=== PATIENT | female | born 1935 | race Caucasian/White ===

== ENCOUNTER 2019-03-29 20:00 | Emergency (ER) | payer OTHER ==
[2019-03-29 20:11] VITALS: TEMP 98.3; BMI 30.7
--- NOTE | 2019-03-29 20:32 | PDOC ---
History of Present Illness - General Chief Complaint: Chest Pain Stated Complaint: CHEST PAIN Time Seen by Provider: 03/29/19 20:31 History Source: Patient Exam Limitations: No Limitations - History of Present Illness Initial Comments: 84-year-old female with past medical history of hypertension, diabetes not dependent on insulin, thyroid disorder presented to the emergency department for palpitations. Daughter at bedside reported they were shopping at the mall today, she had not eaten since breakfast, she has a little bit nauseous and threw up. At that time they went home and she had coffee and some crackers. She then had an episode of palpitations and a flushed feeling in her face, which prompted her to take her blood pressure. She reported the pressure was 188/44. She reported that she then took her Amlodipine 5 mg a little bit earlier than her nighttime dose. She reported that when her blood pressure did not decrease she was afraid and that is why she came to the Emergency Department. Daughter and patient reported patient is feeling much better this time, no palpitations, No shortness of breath, never had chest pain, denied headache, denied current nausea, denied back pain. Pt has also been out of her anxiety medication the last three days. ROS General: denied fever, chills, generalized weakness. HEENT: denied sore throat, rhinorrhea, ear pain. Cardiovascular: admitted to palpitations. denied chest pain, syncope, diaphoresis. Respiratory: denied shortness of breath, cough, sputum production, hemoptysis. Gastrointestinal: admitted to nausea. denied abdominal pain, vomiting, diarrhea , constipation, blood in stool. Genitourinary: denied dysuria, increased urinary frequency, hematuria, urinary incontinence, flank pain. Back: denied back pain. Musculoskeletal: denied joint pain, muscle pain, joint swelling. Neurological: denied headache, dizziness, numbness, tingling, weakness. Integumentary: denied rash, laceration, abrasion. Hematologic/Lymphatic: denied bruising or bleeding. PE Constitutional: Well-nourished, Well-developed, appearing stated age. HEENT: head is normocephalic, atraumatic. EOMI. PERRLA. Neck: supple. Full ROM. Cardiovascular: regular heart rhythm. no murmurs. no pericardial friction rub. Respiratory: clear to auscultation bilaterally. no crackles, rhonchi or wheezing. no stridor. Gastrointestinal: soft, nontender. normal bowel sounds. no rebound, guarding, masses. Extremities: peripheral pulses intact. no lower extremity edema. Neurological: CN 2-12 grossly intact. moves all four extremities. Psych: awake, alert, oriented x3. follows commands. answers questions appropriately. Past History - Past Medical History Allergies/Adverse Reactions: Allergies Allergy/AdvReac Type Severity Reaction Status Date / Time Penicillins Allergy Verified 03/29/19 20:11 - Psycho Social/Smoking Cessation Hx Smoking History: Never smoked Hx Alcohol Use: No Drug/Substance Use Hx: No *Physical Exam - Vital Signs Last Vital Signs Temp Pulse Resp BP Pulse Ox 98.3 F 64 18 171/73 H 98 03/29/19 20:06 03/29/19 20:31 03/29/19 20:31 03/29/19 20:31 03/29/19 20:31 ED Treatment Course - LABORATORY CBC & Chemistry Diagram: 03/29/19 20:40 03/29/19 20:40 - RADIOLOGY Radiology Studies Ordered: Category Date Time Status CHEST PA & LAT [RAD] Stat Radiology 03/29/19 20:29 Ordered Medical Decision Making - Medical Decision Making 84 year old female with above PMH presented to ED for palpitations associated with HTN. Initial Vital Signs Temp Pulse Resp BP Pulse Ox 98.3 F 68 18 209/53 H 97 03/29/19 20:06 03/29/19 20:06 03/29/19 20:06 03/29/19 20:06 03/29/19 20:06 Afebrile. No tachycardia. No tachypnea. Hypertensive. No hypoxia on room air. Vital Signs Pulse Rate 64 03/29/19 20:31 Respiratory Rate 18 03/29/19 20:31 Blood Pressure 171/73 H 03/29/19 20:31 O2 Sat by Pulse Oximetry (%) 98 03/29/19 20:31 HTN improved without medical management. Labs ordered: CBC, CMP, troponin, BNP, UA Imaging ordered: CXR Medications ordered: none EKG performed at 2004: rate 69, regular rhythm, normal axis, normal intervals, QTC 471, RBBB, Left anterior fascicular block, nonspecific ST changes. -Similar to EKG performed 08/18/15 03/29/19 21:15 Laboratory Last Values WBC 7.9 K/mm3 (4.0-10.0) 03/29/19 20:40 RBC 4.36 M/mm3 (3.60-5.2) 03/29/19 20:40 Hgb 12.9 GM/dL (10.7-15.3) 03/29/19 20:40 Hct 39.3 % (32.4-45.2) 03/29/19 20:40 MCV 90.0 fl (80-96) 03/29/19 20:40 MCH 29.6 pg (25.7-33.7) 03/29/19 20:40 MCHC 32.9 g/dl (32.0-36.0) 03/29/19 20:40 RDW 13.4 % (11.6-15.6) 03/29/19 20:40 Plt Count 227 K/MM3 (134-434) 03/29/19 20:40 MPV 10.5 fl (7.5-11.1) 03/29/19 20:40 Absolute Neuts (auto) 4.6 K/mm3 (1.5-8.0) 03/29/19 20:40 Neutrophils % 58.9 % (42.8-82.8) 03/29/19 20:40 Lymphocytes % 31.2 % (8-40) 03/29/19 20:40 Monocytes % 8.7 % (3.8-10.2) 03/29/19 20:40 Eosinophils % 0.7 % (0-4.5) 03/29/19 20:40 Basophils % 0.5 % (0-2.0) 03/29/19 20:40 Nucleated RBC % 0 % (0-0) 03/29/19 20:40 Urine Color Yellow 03/29/19 20:00 Urine Appearance Clear 03/29/19 20:00 Urine pH 5.0 (5.0-8.0) 03/29/19 20:00 Ur Specific [place] 1.015 (1.010-1.035) 03/29/19 20:00 Urine Protein Negative (NEGATIVE) 03/29/19 20:00 Urine Glucose (UA) Negative (NEGATIVE) 03/29/19 20:00 Urine Ketones Negative (NEGATIVE) 03/29/19 20:00 Urine Blood Negative (NEGATIVE) 03/29/19 20:00 Urine Nitrite Negative (NEGATIVE) 03/29/19 20:00 Urine Bilirubin Negative (NEGATIVE) 03/29/19 20:00 Urine Urobilinogen 0.2 mg/dL (0.2-1.0) 03/29/19 20:00 Ur Leukocyte Esterase Trace (NEGATIVE) 03/29/19 20:00 Urine WBC (Auto) 3 /hpf (0-5) 03/29/19 20:00 Urine RBC (Auto) 0 /hpf (0-4) 03/29/19 20:00 Urine Casts (Auto) 0 /lpf (0-8) 03/29/19 20:00 U Epithel Cells (Auto) 0.5 /HPF (0-5/HPF) 03/29/19 20:00 Urine Bacteria (Auto) 0.8 /hpf (NEGATIVE) 03/29/19 20:00 No proteinuria. No hematuria. No UTI. No anemia. No leukocytosis. 03/29/19 21:45 CMP Sodium 139 mmol/L (136-145) 03/29/19 20:40 Potassium 4.5 mmol/L (3.5-5.1) 03/29/19 20:40 Chloride 105 mmol/L (98-107) 03/29/19 20:40 Carbon Dioxide 26 mmol/L (21-32) 03/29/19 20:40 Anion Gap 8 MMOL/L (8-16) 03/29/19 20:40 BUN 46.2 mg/dL (7-18) H 03/29/19 20:40 Creatinine 1.7 mg/dL (0.55-1.3) H 03/29/19 20:40 Est GFR (CKD-EPI)AfAm 31.77 03/29/19 20:40 Est GFR (CKD-EPI)NonAf 27.41 03/29/19 20:40 Random Glucose 201 mg/dL (74-106) H 03/29/19 20:40 Calcium 10.4 mg/dL (8.5-10.1) H 03/29/19 20:40 Magnesium 2.0 mg/dL (1.8-2.4) 03/29/19 20:40 Total Bilirubin 0.4 mg/dL (0.2-1) 03/29/19 20:40 AST 13 U/L (15-37) L 03/29/19 20:40 ALT 23 U/L (13-61) 03/29/19 20:40 Alkaline Phosphatase 69 U/L (45-117) 03/29/19 20:40 Creatine Kinase 114 U/L (26-192) 03/29/19 20:40 Troponin I < 0.02 ng/ml (0.00-0.05) 03/29/19 20:40 B-Natriuretic Peptide 225.3 pg/ml (5-450) 03/29/19 20:40 Total Protein 7.1 g/dl (6.4-8.2) 03/29/19 20:40 Albumin 4.0 g/dl (3.4-5.0) 03/29/19 20:40 No electrolyte abnormalities. Creatinine elevated, prerenal. -Medications ordered: normal saline bolus 250 cc once Discharge - Discharge Information Problems reviewed: Yes Clinical Impression/Diagnosis: Palpitations, Elevated serum creatinine Condition: Stable Disposition: HOME - Admission No - Follow up/Referral - Patient Discharge Instructions Additional Instructions: Follow up with your primary care doctor within 3 days regarding your Emergency Room visit. Your care is not complete until you follow up. You were dehydratd and had a rise in your creatinine, a marker of kidney function. Drink lots of water to stay hydrated. Have this lab value repeated by your primary care doctor within 7 days. Continue taking your medications as prescribed. Check your blood pressure twice a day at the same time every day for the next week. Keep a diary of the numbers. Bring this diary to your primary care doctor so they can have a better picture of your blood pressure over time. Return to the Emergency Department for increasing pain, chest pain, shortness of breath, vomiting, lightheadedness, passing out or any other new, worsening or concerning symptoms. - Post Discharge Activity
--- NOTE | 2019-03-29 20:57 | PDOC ---
Attending Attestation - Resident Resident Name: An Miner - ED Attending Attestation I have performed the following: I have examined & evaluated the patient, The case was reviewed & discussed with the resident, I agree w/resident's findings & plan - HPI HPI: 03/29/19 22:05 Pt was doing [employer] shopping and she suddenly felt hot and HTN and BP was 188. She took her medication and the bp remained elevated. She came to the ER to get checked out. Here she is feeling a lot better. - Physicial Exam PE: 03/29/19 22:06 Normal Exam Heart lungs clear Abd soft NT ND No flank pain No edema of her extremities HEENT normal. - Medical Decision Making 03/29/19 21:34 CBC normal UA normal CXR normal chem is pending EKG old BBB (bifascicular blocks) 03/29/19 21:40 Cardiac enzyme is normal. 03/29/19 21:45 Muñoz is normal but BUN/Cr are slightly elevated; she will be given a copy of her labs and asked to follow with Dr. Mao.
[2019-03-29 21:00] LABS: BASO % 0.5 % (0-2.0); EOS % 0.7 % (0-4.5); HEMATOCRIT 39.3 % (32.4-45.2); HEMOGLOBIN 12.9 GM/dL (10.7-15.3); LYMPH % 31.2 % (8-40); MCH 29.6 pg (25.7-33.7); MCHC 32.9 g/dl (32.0-36.0); MEAN PLT VOLUME 10.5 fl (7.5-11.1); MONO % 8.7 % (3.8-10.2); NEUT % 58.9 % (42.8-82.8); PLATELET COUNT 227 K/MM3 (134-434); RBC 4.36 M/mm3 (3.60-5.2); RDW 13.4 % (11.6-15.6); WHITE BLOOD COUNT 7.9 K/mm3 (4.0-10.0)
[2019-03-29 21:11] LABS: EPI CELLS 0.5 /HPF (0-5/HPF); HYALINE CASTS 0 /lpf (0-8); URINE APPEARANCE CLEAR; URINE BACTERIA 0.8 /hpf (NEGATIVE); URINE BILIRUBIN NEGATIVE (NEGATIVE); URINE COLOR YELLOW; URINE GLUCOSE (UA) NEGATIVE (NEGATIVE); URINE KETONE NEGATIVE (NEGATIVE); URINE LEUK ESTERASE TRACE (NEGATIVE); URINE NITRITE NEGATIVE (NEGATIVE); URINE PROTEIN NEGATIVE (NEGATIVE); URINE RBC 0 /hpf (0-4); URINE UROBILINOGEN 0.2 mg/dL (0.2-1.0); URINE WBC 3 /hpf (0-5)
[2019-03-29 21:40] LABS: BILIRUBIN,TOTAL 0.4 mg/dL (0.2-1); BLOOD UREA NITROGEN 46.2 mg/dL (7-18); CALCIUM 10.4 mg/dL (8.5-10.1); CREATININE 1.7 mg/dL (0.55-1.3); N-TERMINAL BNP 225.3 pg/ml (5-450); POTASSIUM 4.5 mmol/L (3.5-5.1); TOT PROT 7.1 g/dl (6.4-8.2)
[2019-03-29] MEDS ORDERED: SODIUM CHLORIDE 250 ML IV STA (21:58)
[2019-03-29 22:20] VITALS: BP 155/67; PULSE 63
--- NOTE | 2019-03-30 18:34 | EKG ---
Test Reason : Blood Pressure : / mmHG Vent. Rate : 069 BPM Atrial Rate : 069 BPM P-R Int : 168 ms QRS Dur : 124 ms QT Int : 440 ms P-R-T Axes : 046 -45 040 degrees QTc Int : 471 ms NORMAL SINUS RHYTHM RIGHT BUNDLE BRANCH BLOCK LEFT ANTERIOR FASCICULAR BLOCK BIFASCICULAR BLOCK MINIMAL VOLTAGE CRITERIA FOR LVH, MAY BE NORMAL VARIANT SEPTAL INFARCT (CITED ON OR BEFORE 18-AUG-2015) ABNORMAL ECG WHEN COMPARED WITH ECG OF 18-AUG-2015 20:45, QUESTIONABLE CHANGE IN INITIAL FORCES OF SEPTAL LEADS Confirmed by PAM BECK MD ([id number]) on 03/30/2019 6:34:31 PM Referred By: Confirmed By:PAM BECK MD
== END 2019-03-29 22:21 | disposition home or self-care (01) ==
LOC: JER 20:00
PROC: 3E0337Z Introduction of Electrolytic and Water Balance Substance into Peripheral Vein, Percutaneous Approach (ICD-10-PCS; principal; 2019-03-29)
DX: R00.2 Palpitations (principal); R74.8 Abnormal levels of other serum enzymes; I10 Essential (primary) hypertension; E11.9 Type 2 diabetes mellitus without complications; Z88.0 Allergy status to penicillin
CPT/HCPCS: 36415; 71046-TC-FY; 80053; 81003; 82550; 83735; 83880; 84484; 85025; 93005; 93010; 99284-25; J7030

== ENCOUNTER 2020-10-29 14:01 | Observation (INO) | payer OTHER ==
[2020-10-29] MEDS ORDERED: ASPIRIN 81 MG CHEWABLE TABLETS PO ONE (16:08)
[2020-10-29] MEDS ORDERED: ASPIRIN 81 MG CHEWABLE TABLETS ONE (16:10)
[2020-10-29 16:21] LABS: BASO % 0.2 % (0-2.0); EOS % 1.1 % (0-4.5); HEMATOCRIT 38.7 % (32.4-45.2); MCH 29.9 pg (25.7-33.7); MCHC 33.5 g/dl (32.0-36.0); MEAN CELL VOLUME 89.5 fl (80-96); MEAN PLT VOLUME 9.7 fl (7.5-11.1); NEUT % 73.7 % (42.8-82.8); PLATELET COUNT 217 10^3/uL (134-434); RBC 4.33 M/mm3 (3.60-5.2); RDW 13.1 % (11.6-15.6); WHITE BLOOD COUNT 10.5 K/mm3 (4.0-10.0)
[2020-10-29 16:30] LABS: INR 0.94 (0.83-1.09); PROTHROMBIN TIME (PATIENT) 11.4 SEC (9.7-13.0)
[2020-10-29 16:32] LABS: ACTIVATED PTT 24.7 SECONDS (25.2-36.5)
[2020-10-29 16:46] LABS: CHLORIDE 107 mmol/L (98-107); SODIUM 140 mmol/L (136-145)
[2020-10-29 16:48] LABS: CALCIUM 9.3 mg/dL (8.5-10.1)
[2020-10-29 16:49] LABS: ALBUMIN 3.8 g/dl (3.4-5.0); ANION GAP 8 MMOL/L (8-16); BLOOD UREA NITROGEN 47.5 mg/dL (7-18); CO2 25 mmol/L (21-32); GLUCOSE,RANDOM 240 mg/dL (74-106)
[2020-10-29 16:52] LABS: CREATININE 1.8 mg/dL (0.55-1.3); PHOSPHOROUS 3.1 mg/dL (2.5-4.9); SGOT/AST 15 U/L (15-37); SGPT/ALT 39 U/L (13-61)
[2020-10-29 16:54] LABS: BILIRUBIN,TOTAL 0.5 mg/dL (0.2-1); TOT PROT 6.8 g/dl (6.4-8.2)
[2020-10-29 16:55] LABS: ALK PHOS 73 U/L (45-117)
[2020-10-29] MEDS ORDERED: ACETAMINOPHEN 325 MG TABLET (FP) PO PRN (18:17)
[2020-10-29] MEDS: HEPARIN NA (PORCINE) 5,000 UNITS/ML 1ML VIAL SQ SCH (21:29)
[2020-10-29] MEDS: INSULIN SLIDING SCALE (NOVOLOG) 1 VIAL SQ SCH (21:33)
[2020-10-29] MEDS ORDERED: ATORVASTATIN CA 40 MG TABLET (FP) PO SCH (22:00)
[2020-10-29 23:53] VITALS: BMI 34.2
[2020-10-30] MEDS: HEPARIN NA (PORCINE) 5,000 UNITS/ML 1ML VIAL SQ SCH (05:30)
[2020-10-30 06:30] VITALS: TEMP 98.2
[2020-10-30] MEDS: INSULIN SLIDING SCALE (NOVOLOG) 1 VIAL SQ SCH ×2 (06:30→11:24)
[2020-10-30 07:56] LABS: HEMATOCRIT 37.6 % (32.4-45.2); HEMOGLOBIN 12.5 GM/dL (10.7-15.3); MCHC 33.4 g/dl (32.0-36.0); MEAN CELL VOLUME 89.9 fl (80-96); MEAN PLT VOLUME 9.8 fl (7.5-11.1); PLATELET COUNT 198 10^3/uL (134-434); RBC 4.17 M/mm3 (3.60-5.2); RDW 13.4 % (11.6-15.6); WHITE BLOOD COUNT 8.8 K/mm3 (4.0-10.0)
[2020-10-30 08:26] LABS: ALBUMIN 3.3 g/dl (3.4-5.0)
[2020-10-30 08:27] LABS: BLOOD UREA NITROGEN 39.8 mg/dL (7-18); CALCIUM 9.1 mg/dL (8.5-10.1)
[2020-10-30 08:28] LABS: MAGNESIUM 2.1 mg/dL (1.8-2.4)
[2020-10-30 08:30] LABS: CREATININE 1.6 mg/dL (0.55-1.3); PHOSPHOROUS 3.2 mg/dL (2.5-4.9)
[2020-10-30 08:31] LABS: BILIRUBIN,TOTAL 0.6 mg/dL (0.2-1)
[2020-10-30] MEDS ORDERED: ESCITALOPRAM OXALATE 10 MG TABLET PO SCH (10:00)
[2020-10-30] MEDS ORDERED: LEVOTHYROXINE NA 125 MCG TABLET (FP) PO SCH (10:00)
[2020-10-30] MEDS ORDERED: NEBIVOLOL 10 MG TABLET (FP) PO SCH (10:00)
[2020-10-30] MEDS ORDERED: ASPIRIN COATED 81 MG TABLET.EC PO SCH (10:00)
[2020-10-30] MEDS ORDERED: VALSARTAN 160 MG TABLET PO SCH (10:00)
[2020-10-30] MEDS ORDERED: amLODIPine BESYLATE 5 MG TABLET (FP) PO SCH (10:00)
[2020-10-30 13:15] VITALS: BP 137/57; PULSE 56
== END 2020-10-30 13:17 | disposition home or self-care (01) ==
LOC: JER 14:01 → JERBED 17:10 → J4S 21:00
PROVIDERS: ATTEND Internal Medicine
PROC: 3E013VG Introduction of Insulin into Subcutaneous Tissue, Percutaneous Approach (ICD-10-PCS; principal; 2020-10-29)
DX: I13.0 Hypertensive heart and chronic kidney disease with heart failure and stage 1 through stage 4 chronic kidney disease, or unspecified chronic kidney disease (principal); I50.1 Left ventricular failure, unspecified; I34.0 Nonrheumatic mitral (valve) insufficiency; I07.1 Rheumatic tricuspid insufficiency; K21.9 Gastro-esophageal reflux disease without esophagitis; E66.9 Obesity, unspecified; Z68.34 Body mass index [BMI] 34.0-34.9, adult; R07.89 Other chest pain; R06.09 Other forms of dyspnea; E03.9 Hypothyroidism, unspecified; F41.9 Anxiety disorder, unspecified; M19.90 Unspecified osteoarthritis, unspecified site; I50.30 Unspecified diastolic (congestive) heart failure; E11.22 Type 2 diabetes mellitus with diabetic chronic kidney disease; N18.9 Chronic kidney disease, unspecified; Z79.4 Long term (current) use of insulin; Z29.9 Encounter for prophylactic measures, unspecified
CPT/HCPCS: 36415; 71045-TC-FY; 80053; 80061; 82550; 82962; 83036; 83721; 83735; 83880; 84100; 84443; 84484; 85025; 85027; 85610; 85730; 93005; 93010; 96372; 99285-25; C9803; G0378; J1644; U0003; U0005